=== PATIENT | female | born 1950 | race Caucasian/White ===

== ENCOUNTER → 2016-09-07 | Outpatient (CLI) | payer OTHER ==
[~2016-09-07] MED LIST: ALBUTEROL17 GM INH; ASPIRIN81 M1 PO; FOLIC ACID1 MG PO; IRON1 TAB PO; ISOSORBIDE DINI30 MG PO; LEVAQUIN PO; LORATADINE PO; METOPROLOL SUCC50 MG PO; MULTI VITAMIN1 EACH PO; PERCOCET 10/3251 TAB PO; PREDNISONE PO; SERTRALINE HCL100 MG PO; SIMVASTATIN40 MG PO; SYMBICORT INH; TRILIPIX135 MG PO; VALIUM10 MG PO; VITAMIN B-12500 MC2; VITAMIN C500 MG PO; VITAMIN D400 UNI2 PO; ZITHROMAX PO
--- NOTE | ~2016-09-07 | MY11 ---
[facility] A Service of [facility] RADIOLOGY TEXT RESULTS PATIENT: JAMARCUS MUELLER LOCATION: CRC : 50 UNIT #: [id number] AGE: [address]: Mala Delgado MD SEX: F ORDER DR: [id number] [facility] [address] [place], [place] [address] [id number] O MR#: [id number] Acc #: [id number] NAME: JAMARCUS MUELLER : 1950 SEX: F STUDY DATE/TIME: 09/07/2016 12:34 UNIT: [facility] ROOM: STUDY DESCRIPTION: MY Mammogram Screening Dig Johnny Attending Physician: Mala Delgado M.D. Ordering Physician: Mala Delgado M.D. Primary Care Physician: Christiano Meza M.D. MEDICAL IMAGING REPORT This report is preliminary unless electronic signature is present EXAM Bilateral digital screening mammogram with CAD 09/07/2016 HISTORY Routine screening. No current complaints. No family history of breast cancer. COMPARISON 04/20/2015, 09/10/2012 TECHNIQUE MLO and CC digital views of each breast were obtained. The exam was reviewed with an FDA approved CAD device. The breasts are entirely fatty replaced. There are no masses or abnormal calcifications. IMPRESSION No change and no evidence of malignancy. Patients over the age of 40 are entered into a reminder system with target due date for the next mammogram. A result letter will also be sent to the patient. BIRADS: 1 - Negative Dictated by... Norm Frias M.D. THIS IS AN ELECTRONICALLY VERIFIED REPORT Norm Frias M.D. at 09/07/2016 3:25 PM BISI/dwayne [facility] A Service [facility] RADIOLOGY TEXT RESULTS PATIENT: JAMARCUS MUELLER LOCATION: CRC : 50 UNIT #: [id number] AGE: [address]: Mala Delgado MD SEX: F ORDER DR: TD: 09/07/2016 14:59 JOB #: [id number] MEDICAL IMAGING REPORT COPY
--- NOTE | ~2016-09-07 | PFT ---
[id number] [facility] [address] [place], [place] [address] [id number] O MR#: [id number] NAME: JAMARCUS MUELLER ROOM: SEX: F STUDY DATE/TIME: : 1950 AGE: STUDY DESCRIPTION: Attending Physician: Mala Delgado M.D. Primary Care Physician: Christiano Meza M.D. PULMONARY DIAGNOSTIC REPORT EXAM Pulmonary Function Test DESCRIPTION Spirometry reviewed. FEV1 71, FVC 90, ratio is 60. This is consistent with mild obstructive defect. Total lung capacity is 119% and showed mild hyperinflation. DLCO is substantially reduced. Dictated by... Iván Landrum/tanner TD: 09/15/2016 07:14 JOB #: [id number] PULMONARY DIAGNOSTIC REPORT
== END | disposition home or self-care (01) ==
LOC: CRC 12:06
DX: Z12.31 Encounter for screening mammogram for malignant neoplasm of breast (principal); J44.9 Chronic obstructive pulmonary disease, unspecified
CPT/HCPCS: 94060; 94726; 94729; G0202